=== PATIENT | male | born 1985 | race Caucasian/White ===

== ENCOUNTER 2018-05-06 09:22 | Emergency (ER) | payer OTHER ==
[2018-05-06] MEDS: NS 1,000 ML IV ×2 (09:50→11:21)
[2018-05-06 10:00] LABS: BASO # 0.1 10^3/uL (0.0-0.2); BASO % 0.4 % (0.0-1.0); EOS # 0.2 10^3/uL (0.0-0.50); EOS % 0.7 % (0.0-3.0); HEMATOCRIT 41.1 % (42.0-52.0); HEMOGLOBIN 14.7 g/dl (13.5-17.5); IMMATURE GRANULOCYTE % 2.6 % (0-3.0); LYMPH # 2.6 10^3/uL (1.5-4.5); LYMPH % 11.5 % (24.0-44.0); MEAN CORPUSCULAR HEMOGLOBIN 30.8 pg (27.0-33.0); MEAN CORPUSCULAR HGB CONC 35.8 g/dl (32.0-36.5); MONO # 1.8 10^3/uL (0.0-0.8); MONO % 7.9 % (0.0-5.0); NEUTROPHILS # 17.5 10^3/uL (1.8-7.7); NEUTROPHILS % 76.9 % (36.0-66.0); PLATELET COUNT, AUTOMATED 433 10^3/uL (150-450); RED BLOOD COUNT 4.78 10^6/uL (4.30-6.10); RED CELL DISTRIBUTION WIDTH 12.5 % (11.5-14.5); WHITE BLOOD COUNT 22.7 10^3/uL (4.0-10.0)
[2018-05-06 10:14] LABS: D-DIMER QUANT 1187.6 ng/ml (<500)
[2018-05-06 10:39] LABS: ANION GAP 11 MEQ/L (8-16); BLOOD UREA NITROGEN 23 MG/DL (7-18); CALCIUM LEVEL 8.7 MG/DL (8.5-10.1); CARBON DIOXIDE LEVEL 25 MEQ/L (21-32); CHLORIDE LEVEL 108 MEQ/L (98-107); CREATININE FOR GFR 1.55 MG/DL (0.70-1.30); GLOMERULAR FILTRATION RATE 55.2 (>60); GLUCOSE, FASTING 70 MG/DL (70-100); POTASSIUM SERUM 4.2 MEQ/L (3.5-5.1); SODIUM LEVEL 144 MEQ/L (136-145)
[2018-05-06] MEDS ORDERED: ISOVUE-370 76% 100ML VIAL (Q9967) As Ordered (10:41)
[2018-05-06] MEDS: ACETAMINOPHEN 325 MG TAB PO (11:20)
== END 2018-05-06 13:24 | disposition home or self-care (01) ==
LOC: M ED 09:22
DX: R55 Syncope and collapse (principal); E86.0 Dehydration; R00.0 Tachycardia, unspecified; R94.31 Abnormal electrocardiogram [ECG] [EKG]
CPT/HCPCS: Q9967

== ENCOUNTER 2020-07-29 12:01 | Emergency (ER) | payer OTHER ==
[~2020-07-29] VITALS: Ht 175.3 cm; Wt 97.7 kg
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
[2020-07-29] MEDS ORDERED: CYCL-707 PO (13:28)
[2020-07-29] MEDS ORDERED: IBUP-1022 PO (13:28)
[2020-07-29] MEDS ORDERED: CYCLOBENZAPRINE 10MG TABLET PO ONE (13:45)
[2020-07-29] MEDS ORDERED: IBUPROFEN 600MG TAB PO ONE (13:45)
[2020-07-29 13:54] VITALS: BP 138/69
== END 2020-07-29 14:08 | disposition home or self-care (01) ==
LOC: M ED 12:01 → EDBD 12:01 → M ED 14:08
DX: S70.01XA Contusion of right hip, initial encounter (principal); S40.011A Contusion of right shoulder, initial encounter; M89.8X5 Other specified disorders of bone, thigh; V29.50XA Motorcycle passenger injured in collision with unspecified motor vehicles in traffic accident, initial encounter